=== PATIENT | male | born 1995 | race Caucasian/White ===

== ENCOUNTER 2017-11-19 19:28 | Emergency (ER) | payer BC ==
[2017-11-19 20:26] VITALS: BP 118/77
--- NOTE | 2017-11-19 21:10 | UC ---
Hand/Wrist HPI - HPI Summary HPI Summary: 22 y/o male presents to the urgent care c/o left hand pain on palmar side radiating to the left forearm s/p crushing L hand between a couch and a door 2 days ago. Pt reports he also has a discrete puncture wound w/ 3 tiny openings in his left palm that are getting red. Pt states he has difficultly closing his hand, but can open his hand and move his fingers w/o any difficulty. Pain is 6/10 sharp intermittent. Pt denies numbness or tingling over the left hand, SOB, chest pain, abdominal pain, N/V/D. Pt is UTD w/ tetanus shot 2 years ago. No Hx of MRSA. - History Of Current Complaint Chief Complaint: UCUpperExtremity Stated Complaint: LEFT HAND PAIN/INJURY Time Seen by Provider: 11/19/17 21:06 Hx Obtained From: Patient Onset/Duration: Sudden Onset, Lasting Days - 2 days, Still Present, Worse Since - today Severity Initially: Mild Severity Currently: Moderate Pain Intensity: 6 Pain Scale Used: 0-10 Numeric Character Of Pain: Sharp Aggravating Factor(s): Movement, Lifting Alleviating Factor(s): Rest, Ice Associated Signs And Symptoms: Positive: Swelling, Redness, Bruising. Negative : Fever, Weakness, Numbness/Tingling Related History: Dominant Hand Right - Allergies/Home Medications Allergies/Adverse Reactions: Allergies Allergy/AdvReac Type Severity Reaction Status Date / Time No Known Allergies Allergy Verified 11/19/17 20:26 PMH/Surg Hx/FS Hx/Imm Hx Previously Healthy: Yes - Pt denies PMHX - Surgical History Surgical History: Yes Surgery Procedure, Year, and Place: L knee - Family History Known Family History: Positive: None - Pt denies FMHX - Social History Occupation: Employed Full-time Lives: With Family Alcohol Use: Weekly Substance Use Type: None Smoking Status (MU): Never Smoked Tobacco - Immunization History Hx Tetanus, Diphtheria Vaccination: Yes - 2014 Review of Systems Constitutional: Negative Skin: Bruising - w/ puncture wound in the palm side of left hand and second finger Eyes: Negative ENT: Negative Respiratory: Negative Cardiovascular: Negative Gastrointestinal: Negative Genitourinary: Negative Motor: Negative Neurovascular: Negative Musculoskeletal: Decreased ROM - left hand, Other: - left hand pain s/p injury Neurological: Negative Psychological: Negative Is Patient Immunocompromised?: No All Other Systems Reviewed And Are Negative: Yes Physical Exam - Summary Physical Exam Summary: Vital Signs Reviewed: Yes General: Well-Appearing, No Pain Distress, Well-Nourished male w/o any apparent distress. Eyes: Positive: Conjunctiva Clear - PERRLA, EOMI ENT: Positive: Normal ENT inspection, Hearing grossly normal, Pharynx normal, TMs normal, Uvula midline Neck: Positive: Supple, Nontender, No Lymphadenopathy Respiratory: Positive: Chest non-tender, Lungs clear, Normal breath sounds, No respiratory distress Cardiovascular: Positive: RRR, No Murmur, Pulses Normal, Brisk Capillary Refill Abdomen Description: Positive: Nontender, No Organomegaly, Soft. Negative: CVA Tenderness (R), CVA Tenderness (L) Bowel Sounds: Positive: Present Musculoskeletal: Positive: Strength Intact, Other: Neurological Exam: Normal Musculoskeletal: Positive: R Hand is without obvious asymmetry or deformity when compared to the L wrist. No surface trauma, open wounds, swelling, or obvious deformity. No overlying erythema or warmth. No bony crepitus. Point tenderness over the thenar eminence and ventral side of wrist. No scaphoid fullness or tenderness to direct palpation or axial load. Decreased ROM due to pain. Motor/sensory function of ulnar, radial, median nerves intact. Ulnar and radial pulses intact. Psychological Exam: Normal Skin Exam: Normal. Positive discrete puncture wound in the mid palmar side of left hand w/ 3 tiny openings w/ surrounding erythema an indistinct borders , warm to touch, mild swelling and tender to palpation. decrease. FROM of the wrist. 2nd phalanx dorsal just below PIPJ w/ a discrete puncture wound w/ erythema and swelling, mild tenderness to palpation. FROM of 2nd finger Triage Information Reviewed: Yes Vital Signs: Initial Vital Signs Temp 97.7 F 11/19/17 20:14 Pulse 87 11/19/17 20:14 Resp 16 11/19/17 20:14 BP 118/77 11/19/17 20:14 Pulse Ox 99 11/19/17 20:14 Hand/Wrist Course/Dx - Course Course Of Treatment: 22 y/o male presents to the urgent care c/o left hand pain on palmar side radiating to the left forearm s/p crushing L hand between a couch and a door 2 days ago. Pt reports he also has a discrete puncture wound w / 3 tiny openings in his left palm that are getting red. Pt states he has difficultly closing his hand, but can open his hand and move his fingers w/o any difficulty. Pain is 6/10 sharp intermittent. Pt denies numbness or tingling over the left hand, SOB, chest pain, abdominal pain, N/V/D. Pt is UTD w / tetanus shot 2 years ago. No Hx of MRSA. Hx obtained. Pt w/ an small infected puncture wound on left palm hand on examination. LF hand X-ray ordered: Negative for fracture, and soft tissue swelling most prominent on the second finger , NO FB as per radiologist. Copious irrigation was done with saline and the wound explored. There was no FB or deep structure injury noted. wound cleaned w/ Iodine swabs. Bacitracin applied over wounds. Wound dressed w/ sterile gauze.PT's left hand immobilized w/ a cock-up splint to avoid flexion. The Pt tolerated the procedure well without adverse effects. Neurovascular intact. Pt Rx Keflex PO, Ibuprofen and bacitracin topical oint. First dose given at the clinic tonight. Pt advised If not improvement or worsening of symptoms to f/u w/ Orthopedic Dr Gómez for further treatment. Pt understood and agreed w/ D/C instructions. - Differential Dx/Diagnosis Differential Diagnosis/HQI/PQRI: Abrasion, Contusion, Fracture, Sprain, Strain, Other - cellulitis, puncture wound Provider Diagnoses: 1- Left hand pain s/p injury. 2- left hand puncture wound s /p injury Discharge - Sign-Out/Discharge Documenting (check all that apply): Discharge/Admit/Transfer - D/c home - Discharge Plan Condition: Stable Disposition: HOME Prescriptions: Bacitracin OINTMENT* 1 applic TOPICAL BID #1 tube Cephalexin CAP* [Keflex CAP*] 500 mg PO QID #27 cap Ibuprofen TAB* [Motrin TAB* 800 MG] 800 mg PO Q6H PRN #30 tab PRN Reason: Pain Patient Education Materials: Puncture Wound (ED), Hand Sprain (ED) Forms: *Physical Education Release Referrals: Roland Talley MD [Primary Care Provider] - 3 Days Yvan Gómez MD [Medical Doctor] - 1 Week Additional Instructions: 1-Please take medications as directed to alleviate pain and swelling. Keep wound clean and dry and apply Bacitracin topical oint. as directed 2-Please apply ice, keep your hand immobilized with the splint. Avoid strenuous exercise or heavy lifting. 3- Please f/u with Orthopedic DR Gómez or your PCP in 1 week is not improvement of symptoms for further evaluation and treatment. - Billing Disposition and Condition Condition: STABLE Disposition: HOME
--- NOTE | 2017-11-19 21:27 | RAD ---
INDICATION: LEFT hand pain following recent crush type injury. COMPARISON: No relevant prior exams available on the [facility] for comparison. TECHNIQUE: AP, lateral, and oblique views LEFT hand. REPORT AND IMPRESSION: Negative for fracture or malalignment. Soft tissue swelling most prominent at the second finger. No conspicuous foreign body or subcutaneous emphysema.
[2017-11-19] MEDS ORDERED: Cephalexin CAP* 500 MG PO ONE (21:44)
== END 2017-11-19 22:15 | disposition home or self-care (01) ==
LOC: UCCORT 19:28
DX: S67.22XA Crushing injury of left hand, initial encounter (principal); S61.432A Puncture wound without foreign body of left hand, initial encounter; W23.0XXA Caught, crushed, jammed, or pinched between moving objects, initial encounter; Y92.9 Unspecified place or not applicable
CPT/HCPCS: 99203; A9270-GY; G0463